=== PATIENT | male | born 1975 | race African-American/Black ===

== ENCOUNTER 2017-02-08 10:53 | Emergency (ER) | payer OTHER ==
[~2017-02-08] VITALS: Ht 167.6 cm; Wt 80.0 kg
[2017-02-08] MEDS ORDERED: LIDODERM 5% P1 PATCH TD (12:30)
[2017-02-08] MEDS ORDERED: MOTRIN800 MG PO (12:30)
[2017-02-08] MEDS ORDERED: FLEXERIL10 MG PO (12:30)
[2017-02-08 12:54] VITALS: BP 156/83
== END 2017-02-08 12:53 | disposition home or self-care (01) ==
LOC: EME 10:53
DX: S39.012A Strain of muscle, fascia and tendon of lower back, initial encounter (principal); M62.838 Other muscle spasm; X50.1XXA Overexertion from prolonged static or awkward postures, initial encounter; Y99.0 Civilian activity done for income or pay
CPT/HCPCS: 99281; 99283

== ENCOUNTER 2017-07-21 07:46 | Emergency (ER) | payer SELFPAY ==
[~2017-07-21] VITALS: Ht 167.6 cm; Wt 84.8 kg
[~2017-07-21 07:46] MED LIST: FLEXERIL10 MG PO; LIDODERM 5% P1 PATCH TD; MOTRIN800 MG PO
[2017-07-21] MEDS ORDERED: PREDNISONE50 MG PO (11:15)
[2017-07-21] MEDS ORDERED: ZITHROMAX Z-PA250 MG PO (11:15)
[2017-07-21 11:30] VITALS: BP 131/89
== END 2017-07-21 11:31 | disposition home or self-care (01) ==
LOC: EME 07:46
DX: J40 Bronchitis, not specified as acute or chronic (principal)
CPT/HCPCS: 71046; 87502; 94640; 99281; 99284